=== PATIENT | female | born 1960 | race Caucasian/White ===

== ENCOUNTER → 2017-01-21 | Outpatient (REF) | payer OTHER ==
[2017-01-21 17:40] LABS: BLOOD UREA NITROGEN 13 MG/DL (7-18); CREATININE FOR GFR 0.62 MG/DL (0.55-1.02); GLOMERULAR FILTRATION RATE > 60.0 (>51)
== END ==
LOC: M LABNEURO 16:58
PROVIDERS: ATTEND Psychiatry & Neurology Neurology
DX: I10 Essential (primary) hypertension (principal)

== ENCOUNTER 2017-01-25 13:11 | Outpatient (CLI) | payer OTHER ==
[2017-01-25] MEDS ORDERED: [UNRECOGNIZED DRUG - CODE] PO (13:19)
[2017-01-25] MEDS ORDERED: DEPA250T32 PO (13:24)
[2017-01-25] MEDS ORDERED: methylPREDNISolone 1,000 MG, VIAL MATE ADAPTER 1 EACH in D5W 250 ML IV ONE (14:00)
[2017-01-25] MEDS ORDERED: BACL10TA2 PO (14:48)
[2017-01-25] MEDS ORDERED: LISI10TA4 PO (14:48)
[2017-01-25] MEDS ORDERED: LEXA5TAB13 PO (14:48)
[2017-01-25] MEDS ORDERED: TECF240C PO (14:48)
== END 2017-01-25 15:15 | disposition home or self-care (01) ==
LOC: M INFU 13:11
PROVIDERS: ATTEND Psychiatry & Neurology Neurology
DX: G35 Multiple sclerosis (principal); Z79.899 Other long term (current) drug therapy; Z88.0 Allergy status to penicillin
CPT/HCPCS: 96365; J2930

== ENCOUNTER 2017-01-26 08:58 | Outpatient (CLI) | payer OTHER ==
[~2017-01-26] VITALS: Ht 154.9 cm; Wt 81.4 kg
[~2017-01-26 08:58] MED LIST: BACL10TA2 PO; DEPA250T32 PO; LEXA5TAB13 PO; LISI10TA4 PO; TECF240C PO; [UNRECOGNIZED DRUG - CODE] PO
[2017-01-26 09:16] VITALS: BP 136/92
[2017-01-26] MEDS ORDERED: methylPREDNISolone 1,000 MG, VIAL MATE ADAPTER 1 EACH in D5W 250 ML IV ONE (10:00)
[2017-01-26 11:30] VITALS: BP 137/73
== END 2017-01-26 11:48 | disposition home or self-care (01) ==
LOC: M OPCLI4PV 08:58 → M MSPAV 09:01 → M OPCLI4PV 11:48
PROVIDERS: ATTEND Psychiatry & Neurology Neurology
DX: G35 Multiple sclerosis (principal)
CPT/HCPCS: 96374; J2930

== ENCOUNTER 2017-01-27 13:08 | Outpatient (CLI) | payer OTHER ==
[~2017-01-27] VITALS: Ht 154.9 cm; Wt 81.4 kg
[2017-01-27 13:30] VITALS: BP 128/70
[2017-01-27] MEDS ORDERED: methylPREDNISolone 1,000 MG, VIAL MATE ADAPTER 1 EACH in D5W 250 ML IV ONE (14:00)
== END 2017-01-27 15:18 | disposition home or self-care (01) ==
LOC: M OPCLI4PR 13:08 → M LAB 13:08 → M PED 13:12 → M LAB 15:18
PROVIDERS: ATTEND Psychiatry & Neurology Neurology
DX: G35 Multiple sclerosis (principal)
CPT/HCPCS: 96365; J2930

== ENCOUNTER 2017-01-28 14:27 | Outpatient (CLI) | payer OTHER ==
[~2017-01-28] VITALS: Ht 154.9 cm; Wt 81.4 kg
[~2017-01-28 14:27] MED LIST changes: +methylPREDNISolone 1,000 MG, VIAL MATE ADAPTER 1 EACH in D5W 250 ML IV ONE
== END 2017-01-28 16:00 | disposition home or self-care (01) ==
LOC: M INFU 14:27
PROVIDERS: ATTEND Psychiatry & Neurology Neurology
DX: G35 Multiple sclerosis (principal); Z79.899 Other long term (current) drug therapy; Z88.0 Allergy status to penicillin
CPT/HCPCS: 96365; J2930

== ENCOUNTER 2017-01-29 13:51 | Outpatient (CLI) | payer OTHER ==
[~2017-01-29] VITALS: Ht 154.9 cm; Wt 81.4 kg
== END 2017-01-29 15:30 | disposition home or self-care (01) ==
LOC: M INFU 13:51
PROVIDERS: ATTEND Psychiatry & Neurology Neurology
DX: G35 Multiple sclerosis (principal); Z88.0 Allergy status to penicillin; Z88.1 Allergy status to other antibiotic agents
CPT/HCPCS: 96365; J2930

== ENCOUNTER → 2018-01-07 | Outpatient (REF) | payer OTHER ==
[2018-01-07 13:13] LABS: BASO % 0.3 % (0.0-1.0); EOS # 0.1 10^3/uL (0.0-0.50); EOS % 2.5 % (0.0-3.0); HEMATOCRIT 41.1 % (36.0-47.0); HEMOGLOBIN 13.3 g/dl (12.0-16.0); LYMPH # 0.7 10^3/uL (1.5-4.5); LYMPH % 22.9 % (24.0-44.0); MEAN CORPUSCULAR HEMOGLOBIN 28.5 pg (27.0-33.0); MEAN CORPUSCULAR HGB CONC 32.4 g/dl (32.0-36.5); MEAN CORPUSCULAR VOLUME 88.2 fl (80.0-96.0); MONO # 0.3 10^3/uL (0.0-0.8); MONO % 8.6 % (0.0-5.0); NEUTROPHILS # 2.1 10^3/uL (1.8-7.7); NEUTROPHILS % 65.7 % (36.0-66.0); PLATELET COUNT, AUTOMATED 254 10^3/uL (150-450); RED BLOOD COUNT 4.66 10^6/uL (4.00-5.40); RED CELL DISTRIBUTION WIDTH 12.6 % (11.5-14.5); WHITE BLOOD COUNT 3.1 10^3/uL (4.0-10.0)
[2018-01-07 13:38] LABS: ALBUMIN/GLOBULIN RATIO 1.38 (1.00-1.93); ALKALINE PHOSPHATASE 63 U/L (45-117); ALT/SGPT 17 U/L (12-78); ANION GAP 6 MEQ/L (8-16); AST/SGOT 15 U/L (7-37); BILIRUBIN,TOTAL 0.6 MG/DL (0.2-1.0); BLOOD UREA NITROGEN 10 MG/DL (7-18); CALCIUM LEVEL 8.9 MG/DL (8.5-10.1); CARBON DIOXIDE LEVEL 33 MEQ/L (21-32); CHLORIDE LEVEL 105 MEQ/L (98-107); CREATININE FOR GFR 0.54 MG/DL (0.55-1.30); GLOMERULAR FILTRATION RATE > 60.0 (>51); GLUCOSE, FASTING 83 MG/DL (70-100); POTASSIUM SERUM 4.2 MEQ/L (3.5-5.1); SODIUM LEVEL 144 MEQ/L (136-145); TOTAL PROTEIN 6.9 GM/DL (6.4-8.2)
== END ==
LOC: M LABNEURO 11:03
DX: G35 Multiple sclerosis (principal)
CPT/HCPCS: 80053

== ENCOUNTER → 2018-04-07 | Outpatient (REF) | payer OTHER ==
[2018-04-07 19:51] LABS: EOS # 0.1 10^3/uL (0.0-0.50); EOS % 1.7 % (0.0-3.0); HEMATOCRIT 40.4 % (36.0-47.0); HEMOGLOBIN 13.1 g/dl (12.0-15.5); IMMATURE GRANULOCYTE % 0.2 % (0-3.0); LYMPH # 0.8 10^3/uL (1.5-4.5); MEAN CORPUSCULAR HEMOGLOBIN 28.9 pg (27.0-33.0); MEAN CORPUSCULAR HGB CONC 32.4 g/dl (32.0-36.5); MEAN CORPUSCULAR VOLUME 89.2 fl (80.0-96.0); MONO # 0.4 10^3/uL (0.0-0.8); MONO % 10.7 % (0.0-5.0); NEUTROPHILS # 2.7 10^3/uL (1.8-7.7); NEUTROPHILS % 66.4 % (36.0-66.0); PLATELET COUNT, AUTOMATED 223 10^3/uL (150-450); RED BLOOD COUNT 4.53 10^6/uL (4.00-5.40); RED CELL DISTRIBUTION WIDTH 13.1 % (11.5-14.5); WHITE BLOOD COUNT 4.1 10^3/uL (4.0-10.0)
[2018-04-07 19:58] LABS: ALBUMIN/GLOBULIN RATIO 1.38 (1.00-1.93); ALKALINE PHOSPHATASE 71 U/L (45-117); ALT/SGPT 14 U/L (12-78); ANION GAP 5 MEQ/L (8-16); AST/SGOT 10 U/L (7-37); BILIRUBIN,TOTAL 0.4 MG/DL (0.2-1.0); BLOOD UREA NITROGEN 12 MG/DL (7-18); CALCIUM LEVEL 8.9 MG/DL (8.5-10.1); CARBON DIOXIDE LEVEL 29 MEQ/L (21-32); CHLORIDE LEVEL 109 MEQ/L (98-107); CREATININE FOR GFR 0.59 MG/DL (0.55-1.30); GLOMERULAR FILTRATION RATE > 60.0 (>51); GLUCOSE, FASTING 87 MG/DL (70-100); POTASSIUM SERUM 4.4 MEQ/L (3.5-5.1); SODIUM LEVEL 143 MEQ/L (136-145); TOTAL PROTEIN 6.9 GM/DL (6.4-8.2)
[2018-04-07 21:35] LABS: FOLATE 4.3 NG/ML; VITAMIN B12 LEVEL 336 PG/ML
== END ==
LOC: M LABNEURO 11:53
DX: G35 Multiple sclerosis (principal)
CPT/HCPCS: 82746

== ENCOUNTER → 2018-10-14 | Outpatient (REF) | payer OTHER ==
[2018-10-14 13:40] LABS: BASO % 0.6 % (0.0-1.0); EOS # 0.1 10^3/uL (0.0-0.50); EOS % 2.5 % (0.0-3.0); HEMATOCRIT 41.4 % (36.0-47.0); HEMOGLOBIN 13.6 g/dl (12.0-15.5); IMMATURE GRANULOCYTE % 0.2 % (0-3.0); LYMPH # 0.8 10^3/uL (1.5-4.5); LYMPH % 17.4 % (24.0-44.0); MEAN CORPUSCULAR HEMOGLOBIN 29.2 pg (27.0-33.0); MEAN CORPUSCULAR HGB CONC 32.9 g/dl (32.0-36.5); MONO # 0.5 10^3/uL (0.0-0.8); MONO % 11.3 % (0.0-5.0); NEUTROPHILS # 3.2 10^3/uL (1.8-7.7); PLATELET COUNT, AUTOMATED 297 10^3/uL (150-450); RED BLOOD COUNT 4.65 10^6/uL (4.00-5.40); RED CELL DISTRIBUTION WIDTH 12.7 % (11.5-14.5); WHITE BLOOD COUNT 4.8 10^3/uL (4.0-10.0)
[2018-10-14 14:01] LABS: ALBUMIN 4.1 GM/DL (3.2-5.2); ALBUMIN/GLOBULIN RATIO 1.41 (1.00-1.93); ALKALINE PHOSPHATASE 71 U/L (45-117); ALT/SGPT 16 U/L (12-78); ANION GAP 7 MEQ/L (8-16); AST/SGOT 10 U/L (7-37); BILIRUBIN,TOTAL 0.4 MG/DL (0.2-1.0); BLOOD UREA NITROGEN 15 MG/DL (7-18); CALCIUM LEVEL 9.1 MG/DL (8.5-10.1); CARBON DIOXIDE LEVEL 30 MEQ/L (21-32); CHLORIDE LEVEL 106 MEQ/L (98-107); CREATININE FOR GFR 0.66 MG/DL (0.55-1.30); GLOMERULAR FILTRATION RATE > 60.0 (>51); GLUCOSE, FASTING 73 MG/DL (70-100); POTASSIUM SERUM 3.8 MEQ/L (3.5-5.1); SODIUM LEVEL 143 MEQ/L (136-145)
== END ==
LOC: M LABNEURO 10:59
DX: G35 Multiple sclerosis (principal)

== ENCOUNTER 2019-02-26 15:47 | Outpatient (CLI) | payer OTHER ==
[~2019-02-26] VITALS: Ht 154.9 cm; Wt 81.8 kg
[~2019-02-26 15:47] MED LIST changes: +[UNRECOGNIZED DRUG - CODE] PO; -[UNRECOGNIZED DRUG - CODE] PO; -methylPREDNISolone 1,000 MG, VIAL MATE ADAPTER 1 EACH in D5W 250 ML IV ONE
[2019-02-26 15:57] VITALS: BP 152/67
[2019-02-26] MEDS ORDERED: methylPREDNISolone 1,000 MG, VIAL MATE ADAPTER 1 EACH in D5W 250 ML IV ONE (16:00)
[2019-02-26 17:10] VITALS: BP 137/77
== END 2019-02-26 17:30 | disposition home or self-care (01) ==
LOC: M INFU 15:47
PROVIDERS: ATTEND Psychiatry & Neurology Neurology
DX: G35 Multiple sclerosis (principal)
CPT/HCPCS: 96365; J2930

== ENCOUNTER 2019-02-27 15:37 | Outpatient (CLI) | payer OTHER ==
[~2019-02-27] VITALS: Ht 154.9 cm; Wt 81.4 kg
[2019-02-27 15:51] VITALS: BP 150/86
[2019-02-27] MEDS ORDERED: methylPREDNISolone 1,000 MG, VIAL MATE ADAPTER 1 EACH in D5W 250 ML IV ONE (16:00)
[2019-02-27 17:19] VITALS: BP 126/88
[2019-02-28 14:00] VITALS: BP 168/94
== END 2019-02-27 17:20 | disposition home or self-care (01) ==
LOC: M INFU 15:37
PROVIDERS: ATTEND Psychiatry & Neurology Neurology
DX: G35 Multiple sclerosis (principal); Z88.0 Allergy status to penicillin
CPT/HCPCS: 96365; J2930

== ENCOUNTER → 2019-06-02 | Outpatient (REF) | payer OTHER ==
[2019-06-02 13:18] LABS: BASO % 0.8 % (0.0-1.0); EOS # 0.1 10^3/uL (0.0-0.50); EOS % 3.1 % (0.0-3.0); HEMATOCRIT 42.2 % (36.0-47.0); HEMOGLOBIN 13.8 g/dl (12.0-15.5); LYMPH # 0.7 10^3/uL (1.5-4.5); LYMPH % 17.8 % (24.0-44.0); MEAN CORPUSCULAR HEMOGLOBIN 29.2 pg (27.0-33.0); MEAN CORPUSCULAR HGB CONC 32.7 g/dl (32.0-36.5); MEAN CORPUSCULAR VOLUME 89.2 fl (80.0-96.0); MONO # 0.5 10^3/uL (0.0-0.8); NEUTROPHILS # 2.6 10^3/uL (1.8-7.7); PLATELET COUNT, AUTOMATED 250 10^3/uL (150-450); RED BLOOD COUNT 4.73 10^6/uL (4.00-5.40); WHITE BLOOD COUNT 3.9 10^3/uL (4.0-10.0)
[2019-06-02 14:18] LABS: ALT/SGPT 24 U/L (12-78); BILIRUBIN,TOTAL 0.5 MG/DL (0.2-1.0); BLOOD UREA NITROGEN 13 MG/DL (7-18); CALCIUM LEVEL 8.8 MG/DL (8.5-10.1); CARBON DIOXIDE LEVEL 27 MEQ/L (21-32); CHLORIDE LEVEL 107 MEQ/L (98-107); CREATININE FOR GFR 0.64 MG/DL (0.55-1.30); FOLATE 14.9 NG/ML; GLOMERULAR FILTRATION RATE > 60.0 (>51); GLUCOSE, FASTING 85 MG/DL (70-100); POTASSIUM SERUM 4.4 MEQ/L (3.5-5.1); SODIUM LEVEL 141 MEQ/L (136-145); TOTAL PROTEIN 6.9 GM/DL (6.4-8.2); VITAMIN B12 LEVEL 385 PG/ML
== END ==
LOC: M LABNEURO 09:48
PROVIDERS: ATTEND Psychiatry & Neurology Neurology
DX: G35 Multiple sclerosis (principal)

== ENCOUNTER → 2021-05-10 | Outpatient (REF) | payer OTHER ==
[~2021-05-10] MED LIST changes: +LISI10TA22 PO; -LISI10TA4 PO
[2021-05-10 15:13] LABS: APPEARANCE, URINE HAZY (CLEAR); BACTERIA, URINE AUTO NEGATIVE (NEGATIVE); BILIRUBIN, URINE AUTO NEGATIVE (NEGATIVE); BLOOD, URINE BLOOD 1+ (NEGATIVE); COLOR, URINE YELLOW (YELLOW); GLUCOSE, URINE (UA) AUTO NEGATIVE (NEGATIVE); KETONE, URINE AUTO NEGATIVE (NEGATIVE); LEUKOCYTE ESTERASE, URINE AUTO NEGATIVE (NEGATIVE); MUCUS, URINE LARGE (NEGATIVE); NITRITE, URINE AUTO NEGATIVE (NEGATIVE); PROTEIN, URINE AUTO NEGATIVE (NEGATIVE); RBC, URINE AUTO 16 /HPF (0-3); SPECIFIC GRAVITY URINE AUTO 1.025 (1.002-1.035); SQUAMOUS EPITHELIAL CELL UR AU 6 /HPF (0-6); WBC, URINE AUTO 2 /HPF (0-3)
== END ==
LOC: M LAB REF 14:43
PROVIDERS: ATTEND Psychiatry & Neurology Neurology
DX: R39.9 Unspecified symptoms and signs involving the genitourinary system (principal)

== ENCOUNTER → 2021-05-25 | Outpatient (CLI) | payer OTHER ==
[~2021-05-25] VITALS: Ht 154.9 cm; Wt 81.4 kg
[2021-05-25] VITALS (8 sets, daily range): BP systolic 138–166; BP diastolic 76–90
[~2021-05-25] MED LIST changes: +ACETAMINOPHEN TAB 650MG DOSE (2X325MG) PO ONE; +OCRELIZUMAB 300 MG in NS 250 ML IV ONE; +diphenhydrAMINE 25MG CAP PO ONE; +methylPREDNISolone 125MG 2ML VIAL IV ONE
== END ==
LOC: M INFU 09:29
PROVIDERS: ATTEND Psychiatry & Neurology Neurology
DX: G35 Multiple sclerosis (principal); Z88.0 Allergy status to penicillin
CPT/HCPCS: 96365; 96366; 96375; J2350; J2930

== ENCOUNTER 2021-06-09 10:02 | Outpatient (CLI) | payer OTHER ==
[~2021-06-09] VITALS: Ht 154.9 cm; Wt 81.4 kg
[2021-06-09 10:13] VITALS: BP 157/93
[2021-06-09 11:07] VITALS: BP 157/93
[2021-06-09 11:30] VITALS: BP 147/86
[2021-06-09 11:59] VITALS: BP 162/84
[2021-06-09 14:21] VITALS: BP 166/81
== END 2021-06-09 13:55 | disposition home or self-care (01) ==
LOC: M INFU 10:02
PROVIDERS: ATTEND Psychiatry & Neurology Neurology
DX: G35 Multiple sclerosis (principal); Z88.0 Allergy status to penicillin
CPT/HCPCS: 96365; 96366; 96375; J2350; J2930

== ENCOUNTER 2021-09-26 14:48 | Outpatient (CLI) | payer OTHER ==
[~2021-09-26] VITALS: Ht 154.9 cm; Wt 81.4 kg
[~2021-09-26 14:48] MED LIST changes: -ACETAMINOPHEN TAB 650MG DOSE (2X325MG) PO ONE; -OCRELIZUMAB 300 MG in NS 250 ML IV ONE; -diphenhydrAMINE 25MG CAP PO ONE; -methylPREDNISolone 125MG 2ML VIAL IV ONE
[2021-09-26 15:50] VITALS: BP 132/88
[2021-09-26] MEDS ORDERED: methylPREDNISolone 1,000 MG, VIAL MATE ADAPTER 1 EACH in NS 250 ML IV ONE (16:00)
[2021-09-26 17:15] VITALS: BP 140/92
== END 2021-09-26 17:17 | disposition home or self-care (01) ==
LOC: M INFU 14:48
PROVIDERS: ATTEND Psychiatry & Neurology Neurology
DX: G35 Multiple sclerosis (principal); Z88.0 Allergy status to penicillin
CPT/HCPCS: 96365; J2930

== ENCOUNTER 2021-09-27 15:31 | Outpatient (CLI) | payer OTHER ==
[~2021-09-27] VITALS: Ht 154.9 cm; Wt 81.4 kg
[2021-09-27 15:58] VITALS: BP 136/83
[2021-09-27] MEDS ORDERED: methylPREDNISolone 1,000 MG, VIAL MATE ADAPTER 1 EACH in NS 250 ML IV ONE (16:05)
[2021-09-27 17:25] VITALS: BP 178/85
== END 2021-09-27 17:25 | disposition home or self-care (01) ==
LOC: M INFU 15:31
PROVIDERS: ATTEND Psychiatry & Neurology Neurology
DX: G35 Multiple sclerosis (principal)
CPT/HCPCS: 96365; J2930

== ENCOUNTER 2021-09-28 15:01 | Outpatient (CLI) | payer OTHER ==
[~2021-09-28] VITALS: Ht 154.9 cm; Wt 81.4 kg
[2021-09-28] MEDS ORDERED: methylPREDNISolone 1,000 MG, VIAL MATE ADAPTER 1 EACH in NS 250 ML IV ONE (15:30)
[2021-09-28 15:42] VITALS: BP 143/88
[2021-09-28 16:40] VITALS: BP 168/76
== END 2021-09-28 16:40 | disposition home or self-care (01) ==
LOC: M INFU 15:01
PROVIDERS: ATTEND Psychiatry & Neurology Neurology
DX: G35 Multiple sclerosis (principal); Z88.0 Allergy status to penicillin
CPT/HCPCS: 96365; J2930

== ENCOUNTER 2021-09-29 14:56 | Outpatient (CLI) | payer OTHER ==
[~2021-09-29] VITALS: Ht 154.9 cm; Wt 81.4 kg
[2021-09-29] MEDS ORDERED: methylPREDNISolone 1,000 MG, VIAL MATE ADAPTER 1 EACH in NS 250 ML IV ONE (15:30)
[2021-09-29 15:41] VITALS: BP 168/78
[2021-09-29 16:40] VITALS: BP 167/83
== END 2021-09-29 16:40 | disposition home or self-care (01) ==
LOC: M INFU 14:56
PROVIDERS: ATTEND Psychiatry & Neurology Neurology
DX: G35 Multiple sclerosis (principal); Z88.0 Allergy status to penicillin
CPT/HCPCS: 96365; J2930

== ENCOUNTER 2021-09-30 06:28 | Outpatient (CLI) | payer OTHER ==
[~2021-09-30] VITALS: Ht 154.9 cm; Wt 82.5 kg
[2021-09-30 10:25] VITALS: BP 144/80
[2021-09-30] MEDS ORDERED: methylPREDNISolone 1,000 MG, VIAL MATE ADAPTER 1 EACH in NS 250 ML IV ONE (10:40)
== END 2021-09-30 12:00 | disposition home or self-care (01) ==
LOC: M INFU 06:28 → M MSPAV 09:45 → M INFU 12:00
PROVIDERS: ATTEND Psychiatry & Neurology Neurology
DX: G35 Multiple sclerosis (principal)
CPT/HCPCS: 96374; J2930

== ENCOUNTER → 2021-11-13 | Outpatient (REF) | payer OTHER ==
[2021-11-13 18:02] LABS: APPEARANCE, URINE CLOUDY (CLEAR); BACTERIA, URINE AUTO 2+ (NEGATIVE); BILIRUBIN, URINE AUTO NEGATIVE (NEGATIVE); BLOOD, URINE BLOOD 1+ (NEGATIVE); COLOR, URINE YELLOW (YELLOW); GLUCOSE, URINE (UA) AUTO NEGATIVE (NEGATIVE); KETONE, URINE AUTO TRACE mg/dL (NEGATIVE); LEUKOCYTE ESTERASE, URINE AUTO 3+ (NEGATIVE); MUCUS, URINE LARGE (NEGATIVE); NITRITE, URINE AUTO POSITIVE (NEGATIVE); PROTEIN, URINE AUTO NEGATIVE (NEGATIVE); RBC, URINE AUTO 3 /HPF (0-3); SPECIFIC GRAVITY URINE AUTO 1.024 (1.002-1.035); SQUAMOUS EPITHELIAL CELL UR AU 5 /HPF (0-6); UROBILINOGEN, URINE AUTO 0.2 mg/dL (0.0-2.0); WBC, URINE AUTO 167 /HPF (0-3)
== END ==
LOC: M SMT 16:38
PROVIDERS: ATTEND Nurse Practitioner Women's Health
DX: R32 Unspecified urinary incontinence (principal)

== ENCOUNTER → 2022-03-16 | Outpatient (REF) | payer OTHER ==
[~2022-03-16] MED LIST changes: +DARI15TA11 PO; +LEXA1TAB2 PO; +MODA200T15 PO; +PROV100T25 PO
[2022-03-16 13:41] LABS: BACTERIA, URINE AUTO 1+ (NEGATIVE); MUCUS, URINE SMALL (NEGATIVE); RBC, URINE AUTO 2 /HPF (0-3); SQUAMOUS EPITHELIAL CELL UR AU 7 /HPF (0-6); WBC, URINE AUTO 89 /HPF (0-3)
== END ==
LOC: M SMT 13:22
PROVIDERS: ATTEND Specialist
DX: R32 Unspecified urinary incontinence (principal)

== ENCOUNTER → 2022-03-19 | Outpatient (CLI) | payer OTHER | LOC: M LABSMTC 10:33 | PROVIDERS: ATTEND Anesthesiology | DX: Z01.812 Encounter for preprocedural laboratory examination (principal) ==

== ENCOUNTER 2022-03-22 13:01 | Day surgery (SDC) | payer OTHER ==
[~2022-03-22] VITALS: Ht 157.5 cm; Wt 84.4 kg
[~2022-03-22 13:01] MED LIST changes: +KETOROLAC 60MG 2ML VIAL As Ordered ONE; +LIDOCAINE 2% 100MG/5ML SDV (FOR ANES.) As Ordered ONE; +LR 1,000 ML IV ONE; +MIDAZOLAM INJ 2MG/2ML VIAL (J2250 PER 1MG) As Ordered ONE; +ONDANSETRON 4MG/2ML VIAL As Ordered ONE; +dexameTHASONE 4 MG/ML 1ML VIAL (J1100 PER 1MG) As Ordered ONE; +fentaNYL 100 MCG/2 ML INJECTION As Ordered ONE; +propofoL 500 MG/50 ML VIAL As Ordered ONE
[2022-03-22] MEDS ORDERED: TRIMETHOPRIM/SULFAMETHOXAZOLE 160 MG in D5W 250 ML IV ONE (15:30)
[2022-03-22] MEDS ORDERED: LIDOCAINE 1% SDV 30ML VIAL As Ordered ONE (15:33)
[2022-03-22] MEDS ORDERED: SODIUM BICARBONATE 8.4% INJ 50MEQ 50 ML VIAL As Ordered ONE (15:33)
[2022-03-22] MEDS ORDERED: TOBRAMYCIN 80MG/2ML VIAL As Ordered ONE (15:43)
[2022-03-22 18:15] VITALS: BP 160/92
== END 2022-03-22 18:15 | disposition home or self-care (01) ==
LOC: M SDC 13:01
PROVIDERS: ATTEND Specialist
DX: R35.0 Frequency of micturition (principal); N39.41 Urge incontinence; I10 Essential (primary) hypertension; G35 Multiple sclerosis; M19.90 Unspecified osteoarthritis, unspecified site; M54.9 Dorsalgia, unspecified; Z88.0 Allergy status to penicillin; Z88.1 Allergy status to other antibiotic agents; Z79.899 Other long term (current) drug therapy; Z79.2 Long term (current) use of antibiotics
CPT/HCPCS: 64590; 76000; 95971; C1778; C1897; J1100; J1885; J2250; J2405; J3010; J3260

== ENCOUNTER → 2022-06-11 | Outpatient (CLI) | payer OTHER ==
[~2022-06-11] VITALS: Ht 154.9 cm; Wt 74.0 kg
[2022-06-11] VITALS (7 sets, daily range): BP systolic 133–168; BP diastolic 62–88
[~2022-06-11] MED LIST changes: +ACETAMINOPHEN TAB 650MG DOSE (2X325MG) PO ONE; -KETOROLAC 60MG 2ML VIAL As Ordered ONE; -LIDOCAINE 2% 100MG/5ML SDV (FOR ANES.) As Ordered ONE; -LR 1,000 ML IV ONE; -MIDAZOLAM INJ 2MG/2ML VIAL (J2250 PER 1MG) As Ordered ONE; +OCRELIZUMAB 600 MG in NS 500 ML IV ONE; -ONDANSETRON 4MG/2ML VIAL As Ordered ONE; -dexameTHASONE 4 MG/ML 1ML VIAL (J1100 PER 1MG) As Ordered ONE; +diphenhydrAMINE 25MG CAP PO ONE; -fentaNYL 100 MCG/2 ML INJECTION As Ordered ONE; +methylPREDNISolone 125MG 2ML VIAL IV ONE; -propofoL 500 MG/50 ML VIAL As Ordered ONE
== END ==
LOC: M INFU 07:57
PROVIDERS: ATTEND Psychiatry & Neurology Neurology
DX: G35 Multiple sclerosis (principal)
CPT/HCPCS: 96365; 96366; 96375; J2350; J2930

== ENCOUNTER 2022-12-14 08:15 | Outpatient (CLI) | payer OTHER ==
[~2022-12-14] VITALS: Ht 154.9 cm; Wt 88.6 kg
[2022-12-14 08:15] VITALS: BP 139/83
[~2022-12-14 08:15] MED LIST changes: -ACETAMINOPHEN TAB 650MG DOSE (2X325MG) PO ONE; -OCRELIZUMAB 600 MG in NS 500 ML IV ONE; -diphenhydrAMINE 25MG CAP PO ONE; -methylPREDNISolone 125MG 2ML VIAL IV ONE
[2022-12-14] MEDS ORDERED: diphenhydrAMINE 25MG CAP PO ONE (08:30)
[2022-12-14] MEDS ORDERED: OCRELIZUMAB 600 MG in NS 500 ML IV ONE (08:30)
[2022-12-14] MEDS ORDERED: methylPREDNISolone 125MG 2ML VIAL IV ONE (08:30)
[2022-12-14] MEDS ORDERED: ACETAMINOPHEN TAB 650MG DOSE (2X325MG) PO ONE (08:30)
[2022-12-14 09:26] VITALS: BP 151/82
[2022-12-14 10:00] VITALS: BP 170/78
[2022-12-14 13:00] VITALS: BP 148/72
== END 2022-12-14 13:00 | disposition home or self-care (01) ==
LOC: M INFU 08:15
PROVIDERS: ATTEND Psychiatry & Neurology Neurology
DX: G35 Multiple sclerosis (principal); Z88.0 Allergy status to penicillin
CPT/HCPCS: 96365; 96366; 96375; J2350

== ENCOUNTER 2023-07-09 12:27 | Outpatient (CLI) | payer OTHER ==
[~2023-07-09] VITALS: Ht 154.9 cm; Wt 88.0 kg
[2023-07-09 12:39] VITALS: BP 138/94; O2SAT 96
[2023-07-09] MEDS ORDERED: methylPREDNISolone 1,000 MG, VIAL MATE ADAPTER 1 EACH in NS 250 ML IV ONE (13:00)
[2023-07-09 14:02] VITALS: BP 164/88; O2SAT 94
== END 2023-07-09 14:10 ==
LOC: M INFU 12:27
PROVIDERS: ATTEND Psychiatry & Neurology Neurology
DX: G35 Multiple sclerosis (principal); Z88.0 Allergy status to penicillin
CPT/HCPCS: 96365; J2930

== ENCOUNTER 2023-07-10 15:19 | Outpatient (CLI) | payer OTHER ==
[~2023-07-10] VITALS: Ht 154.9 cm; Wt 92.0 kg
[2023-07-10] MEDS ORDERED: methylPREDNISolone 1,000 MG, VIAL MATE ADAPTER 1 EACH in NS 250 ML IV ONE (15:30)
[2023-07-10 15:35] VITALS: BP 177/95; O2SAT 96
[2023-07-10 16:45] VITALS: BP 152/89; O2SAT 95
== END 2023-07-10 16:45 ==
LOC: M INFU 15:19
PROVIDERS: ATTEND Psychiatry & Neurology Neurology
DX: G35 Multiple sclerosis (principal); Z88.0 Allergy status to penicillin
CPT/HCPCS: 96365; J2930

== ENCOUNTER 2023-07-11 15:23 | Outpatient (CLI) | payer OTHER ==
[~2023-07-11] VITALS: Ht 154.9 cm; Wt 92.0 kg
[2023-07-11 15:30] VITALS: BP 180/77; O2SAT 96
[2023-07-11] MEDS ORDERED: methylPREDNISolone 1,000 MG, VIAL MATE ADAPTER 1 EACH in NS 250 ML IV ONE (15:30)
[2023-07-11 16:47] VITALS: BP 139/66; O2SAT 97
== END 2023-07-11 16:50 | disposition home or self-care (01) ==
LOC: M INFU 15:23
PROVIDERS: ATTEND Psychiatry & Neurology Neurology
DX: G35 Multiple sclerosis (principal); Z88.0 Allergy status to penicillin
CPT/HCPCS: 96365; J2930

== ENCOUNTER 2023-07-12 15:52 | Outpatient (CLI) | payer OTHER ==
[~2023-07-12] VITALS: Ht 154.9 cm; Wt 92.0 kg
[2023-07-12 16:00] VITALS: BP 176/86; O2SAT 95
[2023-07-12] MEDS ORDERED: methylPREDNISolone 1,000 MG, VIAL MATE ADAPTER 1 EACH in NS 250 ML IV ONE (16:00)
[2023-07-12 17:30] VITALS: BP 176/85; O2SAT 97
== END 2023-07-12 17:30 ==
LOC: M INFU 15:52
PROVIDERS: ATTEND Psychiatry & Neurology Neurology
DX: G35 Multiple sclerosis (principal); Z88.0 Allergy status to penicillin
CPT/HCPCS: 96365; J2930

== ENCOUNTER → 2023-09-03 | Outpatient (REF) | payer OTHER ==
[2023-09-03 14:31] LABS: APPEARANCE, URINE TURBID (CLEAR); BACTERIA, URINE AUTO 3+ (NEGATIVE); BILIRUBIN, URINE AUTO NEGATIVE (NEGATIVE); BLOOD, URINE BLOOD 2+ (NEGATIVE); COLOR, URINE AMBER (YELLOW); GLUCOSE, URINE (UA) AUTO NEGATIVE (NEGATIVE); KETONE, URINE AUTO NEGATIVE (NEGATIVE); LEUKOCYTE ESTERASE, URINE AUTO 2+ (NEGATIVE); MUCUS, URINE SMALL (NEGATIVE); NITRITE, URINE AUTO POSITIVE (NEGATIVE); PROTEIN, URINE AUTO 3+ mg/dL (NEGATIVE); RBC, URINE AUTO 77 /HPF (0-3); SPECIFIC GRAVITY URINE AUTO 1.015 (1.002-1.035); SQUAMOUS EPITHELIAL CELL UR AU 2 /HPF (0-6); WBC, URINE AUTO TNTC /HPF (0-3)
== END ==
LOC: M SMT 13:11
PROVIDERS: ATTEND Physician Assistant
DX: R30.0 Dysuria (principal)

== ENCOUNTER 2023-12-26 09:05 | Outpatient (CLI) | payer OTHER ==
[2023-12-26] VITALS (7 sets, daily range): BP systolic 160–180; BP diastolic 80–100; O2SAT 95–100
[~2023-12-26] VITALS: Ht 157.5 cm; Wt 95.9 kg
[2023-12-26] MEDS ORDERED: OCRELIZUMAB 600 MG in NS 500 ML IV ONE (09:15)
[2023-12-26] MEDS: diphenhydrAMINE 25MG CAP PO ONE ×2 (09:24→09:45)
[2023-12-26] MEDS: ACETAMINOPHEN TAB 650MG DOSE (2X325MG) PO ONE ×2 (09:24→09:45)
[2023-12-26] MEDS: methylPREDNISolone 125MG 2ML VIAL IV ONE ×2 (09:24→09:45)
== END 2023-12-26 14:00 ==
LOC: M INFU 09:05
PROVIDERS: ATTEND Psychiatry & Neurology Neurology
DX: G35 Multiple sclerosis (principal); Z88.0 Allergy status to penicillin

== ENCOUNTER → 2024-06-15 | Outpatient (CLI) | payer OTHER ==
[2024-06-15 11:51] LABS: BASO # 0.1 10^3/uL (0.0-0.2); BASO % 0.9 % (0.0-1.0); EOS # 0.2 10^3/uL (0.0-0.5); EOS % 2.9 % (0.0-3.0); HEMATOCRIT 43.5 % (36.0-47.0); HEMOGLOBIN 14.3 g/dl (12.0-15.5); LYMPH # 0.8 10^3/uL (1.5-5.0); LYMPH % 14.4 % (24.0-44.0); MEAN CORPUSCULAR HEMOGLOBIN 28.9 pg (27.0-33.0); MEAN CORPUSCULAR HGB CONC 32.9 g/dl (32.0-36.5); MEAN CORPUSCULAR VOLUME 88.1 fl (80.0-96.0); MONO # 0.6 10^3/uL (0.0-0.8); MONO % 10.1 % (2.0-8.0); NEUTROPHILS # 4.2 10^3/uL (1.5-8.5); NEUTROPHILS % 71.5 % (36.0-66.0); PLATELET COUNT, AUTOMATED 285 10^3/uL (150-450); RED BLOOD COUNT 4.94 10^6/uL (4.00-5.40); WHITE BLOOD COUNT 5.8 10^3/uL (4.0-10.0)
[2024-06-15 12:20] LABS: ALBUMIN 3.9 G/DL (3.2-5.2); ALKALINE PHOSPHATASE 107 U/L (46-116); ALT/SGPT 14 U/L (7.0-40); AST/SGOT 10 U/L (<34); BILIRUBIN,TOTAL 0.4 MG/DL (0.3-1.2); BLOOD UREA NITROGEN 17 MG/DL (9-23); CALCIUM LEVEL 9.2 MG/DL (8.3-10.6); CARBON DIOXIDE LEVEL 28 MMOL/L (20-31); CHLORIDE LEVEL 110 MMOL/L (98-107); CREATININE FOR GFR 0.93 MG/DL (0.55-1.30); GLOMERULAR FILTRATION RATE > 60.0 (>45); GLUCOSE, FASTING 96 MG/DL (74-106); POTASSIUM SERUM 4.4 MMOL/L (3.5-5.1); SODIUM LEVEL 142 MMOL/L (136-145); TOTAL PROTEIN 6.1 G/DL (5.7-8.2)
== END ==
LOC: M LAB 11:16
PROVIDERS: ATTEND Psychiatry & Neurology Neurology
DX: G35 Multiple sclerosis (principal)

== ENCOUNTER 2024-06-25 08:52 | Outpatient (CLI) | payer OTHER ==
[2024-06-25] VITALS (7 sets, daily range): BP systolic 136–160; BP diastolic 56–90; O2SAT 92–96
[~2024-06-25] VITALS: Ht 157.5 cm; Wt 91.0 kg
[2024-06-25] MEDS: diphenhydrAMINE 25MG CAP PO ONE (09:16)
[2024-06-25] MEDS: methylPREDNISolone 125MG 2ML VIAL IV ONE (09:17)
[2024-06-25] MEDS: ACETAMINOPHEN TAB 650MG DOSE (2X325MG) PO ONE (09:18)
[2024-06-25] MEDS: OCRELIZUMAB 600 MG in NS 500 ML IV ONE (09:47)
== END 2024-06-25 14:00 ==
LOC: M INFU 08:52
PROVIDERS: ATTEND Psychiatry & Neurology Neurology
DX: G35 Multiple sclerosis (principal); Z88.0 Allergy status to penicillin

== ENCOUNTER 2025-02-03 09:42 | Outpatient (CLI) | payer OTHER ==
[~2025-02-03] VITALS: Ht 160 cm; Wt 95.5 kg
[2025-02-03 09:50] VITALS: BP 140/88; O2SAT 97
[2025-02-03] MEDS: methylPREDNISolone 125MG 2ML VIAL IV ONE (10:01)
[2025-02-03] MEDS: ACETAMINOPHEN 325 MG TAB PO ONE (10:01)
[2025-02-03] MEDS: diphenhydrAMINE 25MG CAP PO ONE (10:01)
[2025-02-03] MEDS: OCRELIZUMAB 600 MG in NS 500 ML IV ONE (10:52)
[2025-02-03 11:30] VITALS: BP 142/88; O2SAT 97
[2025-02-03 12:00] VITALS: BP 158/90; O2SAT 95
[2025-02-03 12:30] VITALS: BP_SYST 149; O2SAT 94
[2025-02-03 14:00] VITALS: BP 133/90; O2SAT 97
[2025-02-03 15:04] VITALS: BP 152/98; O2SAT 95
== END 2025-02-03 15:05 ==
LOC: M INFU 09:42
PROVIDERS: ATTEND Psychiatry & Neurology Neurology
DX: G35 Multiple sclerosis (principal); Z88.0 Allergy status to penicillin
CPT/HCPCS: 96365; 96366; J2350

== ENCOUNTER 2025-08-06 08:45 | Outpatient (CLI) | payer OTHER ==
[~2025-08-06] VITALS: Ht 154.9 cm; Wt 93.1 kg
[~2025-08-06 08:45] MED LIST changes: -DEPA250T32 PO; +DIVA-65 PO
[2025-08-06] MEDS: ACETAMINOPHEN 325 MG TAB PO ONE (09:09)
[2025-08-06 09:19] VITALS: BP 143/68; O2SAT 100
[2025-08-06] MEDS: OCRELIZUMAB 600 MG in NS 500 ML IV ONE (09:38)
[2025-08-06 10:15] VITALS: BP 135/80; O2SAT 98
[2025-08-06 10:30] VITALS: BP 139/82; O2SAT 97
[2025-08-06 11:00] VITALS: BP 140/81; O2SAT 97
[2025-08-06 11:30] VITALS: BP 150/72; O2SAT 97
[2025-08-06 13:48] VITALS: BP 162/92; O2SAT 95
== END 2025-08-06 14:00 | disposition home or self-care (01) ==
LOC: M INFU 08:45
PROVIDERS: ATTEND Psychiatry & Neurology Neurology
DX: G35 Multiple sclerosis (principal); Z88.0 Allergy status to penicillin
CPT/HCPCS: 96365; 96366; J2350